=== PATIENT | female | born 1960 | race Asian ===

== ENCOUNTER 2025-01-23 00:31 | Emergency (ER) | payer BC ==
[~2025-01-23] VITALS: Ht 157.5 cm; Wt 59.1 kg
[2025-01-23 00:40] VITALS: BP 112/65; PULSE 67; RESP 14; TEMP 97.9; O2SAT 98
[2025-01-23 00:47] LABS: COVID AG,FIA SOURCE NASAL SWAB
[2025-01-23 01:18] LABS: SARS-COV2 (COVID) ANTIGEN,FIA Negative (Negative)
== END 2025-01-23 01:56 | disposition home or self-care (01) ==
LOC: EMS 00:31
DX: Z20.822 Contact with and (suspected) exposure to COVID-19 (principal); I10 Essential (primary) hypertension
CPT/HCPCS: 99283